=== PATIENT | male | born 1955 | race African-American/Black ===

== ENCOUNTER → 2019-12-24 | Outpatient (CLI) | payer BC, OTHER ==
[~2019-12-24] VITALS: Ht 175.3 cm; Wt 106.6 kg
[2019-12-24 11:57] LABS: Basophils # (auto) 0 10 ^3/uL (0-0.2); Basophils % (auto) 0.4 % (0.0-2.0); Eosinophils # (auto) 0.1 10 ^3/uL (0-0.8); Hemoglobin 15.3 g/dL (13.5-17.5); Lymphocytes # (auto) 1.6 10 ^3/uL (0.4-5.4); Lymphocytes % (auto) 28.3 % (10.0-50.0); Mean Corpuscular Hemoglobin 28.5 pg (28.0-32.0); Mean Corpuscular Hgb Conc. 32.6 g/dL (32.0-36.0); Mean Corpuscular Volume 87.2 fL (80.0-100.0); Monocytes # (auto) 0.5 10 ^3/uL (0-1.3); Neutrophils # (auto) 3.6 10 ^3/uL (1.6-8.6); Neutrophils % (auto) 62.3 % (37.0-80.0); Nucleated Red Blood Cells % 0.1 %; Platelet Count (auto) 181 10^3/uL (140-450); Red Blood Cells 5.39 10^6/uL (4.5-5.90); White Blood Cell 5.7 10^3/uL (4.4-10.8)
[2019-12-24 12:05] LABS: Urine Blood Negative /uL (Negative); Urine Specific Gravity 1.011 (1.001-1.035)
[2019-12-24 12:06] LABS: Albumin 3.8 g/dL (3.4-5.0); Potassium 3.6 mmol/L (3.5-5.1)
[2019-12-24 12:15] LABS: Free T4 (Free Thyroxine) 0.96 ng/dL (0.89-1.76); Prostate Specific Antigen 1.01 ng/mL (0.0-4.0)
[2019-12-24 12:26] LABS: BUN/Creatinine Ratio 9.7; Bilirubin, Total 0.8 mg/dL (0.2-1.0); Total Protein 7.9 g/dL (6.4-8.2)
== END | disposition home or self-care (01) ==
LOC: Rad HDHVI 08:20
PROVIDERS: ATTEND Internal Medicine Cardiovascular Disease
DX: R07.89 Other chest pain (principal); R00.0 Tachycardia, unspecified; I10 Essential (primary) hypertension; E03.9 Hypothyroidism, unspecified; K90.9 Intestinal malabsorption, unspecified; C61 Malignant neoplasm of prostate; E29.1 Testicular hypofunction; N39.0 Urinary tract infection, site not specified; Z79.899 Other long term (current) drug therapy
CPT/HCPCS: 36415; 78452; 80053; 80061; 81003; 82306; 82607; 83036; 84153; 84403; 84439; 84443; 85025; 93017; 93306; 96374; A9500

== ENCOUNTER 2023-12-04 10:29 | Emergency (ER) | payer BC ==
[~2023-12-04] VITALS: Ht 177.8 cm; Wt 105.6 kg
[2023-12-04 11:07] LABS: Urine Bacteria None Seen /hpf (None Seen)
[2023-12-04 11:19] LABS: Basophils # (auto) 0 10 ^3/uL (0-0.2); Basophils % (auto) 0.4 % (0.0-2.0); Eosinophils # (auto) 0.1 10 ^3/uL (0-0.8); Eosinophils % (auto) 1.2 % (0.0-7.0); Hematocrit 47.8 % (41.0-53.0); Hemoglobin 15.8 g/dL (13.5-17.5); Lymphocytes # (auto) 1.3 10 ^3/uL (0.4-5.4); Lymphocytes % (auto) 23.5 % (10.0-50.0); Mean Corpuscular Hemoglobin 28.5 pg (28.0-32.0); Mean Corpuscular Hgb Conc. 33.1 g/dL (32.0-36.0); Mean Corpuscular Volume 86.2 fL (80.0-100.0); Monocytes # (auto) 0.4 10 ^3/uL (0-1.3); Monocytes % (auto) 6.9 % (0.0-12.0); Neutrophils # (auto) 3.8 10 ^3/uL (1.6-8.6); Nucleated Red Blood Cells % 0.1 %; Red Blood Cells 5.54 10^6/uL (4.5-5.90); Red Cell Distribution Width 14.8 % (11.8-14.3); White Blood Cell 5.6 10^3/uL (4.4-10.8)
[2023-12-04 11:25] LABS: Urine Blood Negative /uL (Negative); Urine Clarity Clear (Clear); Urine Color Light-Yellow (Yellow); Urine Protein, UAD Negative (Negative); Urine Specific Gravity 1.012 (1.001-1.035); Urine Urobilinogen Normal (Negative); Urine WBC <1 /hpf (0 - 3); Urine pH 5.5 (5.0-9.0)
[2023-12-04 11:42] LABS: Alanine Aminotransferase 38 U/L (7-40); Albumin 4.1 g/dL (3.2-4.8); Alkaline Phosphatase 55 U/L (46-116); Anion Gap 9 (5-15); Aspartate Aminotransferase 31 U/L (13-40); BUN/Creatinine Ratio 8.1 (10.0-20.0); Bilirubin, Total 0.8 mg/dL (0.2-1.0); Blood Urea Nitrogen 11 mg/dL (9-23); Calcium 9.1 mg/dL (8.5-10.1); Carbon Dioxide 22 mmol/L (20-30); Chloride 108 mmol/L (98-107); Glucose 210 mg/dL (74-106); Potassium 3.9 mmol/L (3.5-5.1); Sodium 139 mmol/L (136-145); Total Protein 6.7 g/dL (5.7-8.2)
[2023-12-04] MEDS: KETOROLAC TROMETH 60MG/2ML VIAL IM ONE (13:15)
[2023-12-04] MEDS ORDERED: CYCL-839 PO (16:03)
[2023-12-04] MEDS ORDERED: DICL50TA2 PO (16:03)
[2023-12-04 16:45] VITALS: BP 148/70; PULSE 58; RESP 17; TEMP 96.7; O2SAT 99
== END 2023-12-04 16:57 | disposition home or self-care (01) ==
LOC: ER 10:29
DX: R07.89 Other chest pain (principal); M94.0 Chondrocostal junction syndrome [Tietze]; E11.21 Type 2 diabetes mellitus with diabetic nephropathy; I10 Essential (primary) hypertension
CPT/HCPCS: 36415; 71046; 80053; 81001; 85025; 93005; J1885

== ENCOUNTER 2025-03-20 12:45 | Outpatient (CLI) | payer BC, MEDICARE ==
[~2025-03-20 12:45] MED LIST: CYCL-839 PO; DICL50TA2 PO
[2025-03-20 12:55] VITALS: BP 118/74; PULSE 65; RESP 18; O2SAT 95
[2025-03-20 13:09] VITALS: BP 116/73; PULSE 62; RESP 18; O2SAT 95
--- NOTE | 2025-03-20 13:14 | DVH ---
EXAM: XY CHEST TWO VIEWS ROUTINE CLINICAL HISTORY: pain COMPARISON: XY CHEST TWO VIEWS ROUTINE on DOS: 12/04/23 TECHNIQUE: Frontal and lateral view of the chest was obtained FINDINGS: Lines and Tubes: None Lungs: No focal consolidation. Pleura: No effusion. No pneumothorax. Cardiomediastinal contours: Unremarkable Bones: No acute osseous abnormality. IMPRESSION: No acute cardiopulmonary disease.
[2025-03-20] MEDS ORDERED: OLME40TA9 PO (14:17)
--- NOTE | 2025-03-21 11:02 | DVHHP ---
ADMIT DATE: 03/20/2025 HISTORY OF PRESENT ILLNESS: The patient is 70 with history of hypertension. Strong family history of coronary artery disease. Now presents with signs and symptom complex of chest pain with exertion. Stress Cardiolite is positive for ischemia and the patient is to undergo coronary angiography. Risks and benefits were explained to the patient. The patient has history of hypertension. No history of diabetes. No history of previous CVA. No history of myocardial infarction. No history of melena, hematochezia, hematemesis, hemoptysis, or any bleeding diathesis including hematuria. Denies a rheumatologic disorder. He is currently on Benicar HCT for blood pressure and is under excellent control at this time. He denies any history of tobacco or alcohol use. Denies any history of trauma. No fever. No chills. No recent travel outside the country. No any infectious etiology at this time. PHYSICAL EXAMINATION: VITAL SIGNS: Blood pressure is 124/80, pulse is 77, O2 saturation 96% on room air. HEENT: Pupils are reactive. Funduscopic exam shows no AV nicking, no exudates, no papilledema. Sclerae anicteric. Extraocular muscles are intact. Tympanic membranes are negative. Oral mucosa moist. Posterior pharynx without any exudates. NECK: No JVD appreciated. Carotid pulses are 2+ symmetrical. Normal upstroke and contour. No bruits. No cervical adenopathy. No supraclavicular adenopathy. No axillary adenopathy. Thyroid is within normal limits. PULMONARY: Clear to auscultation. Tympanic to percussion. No wheezes. No rhonchi. No egophony. CARDIOVASCULAR: Regular rate without S3 and without S4. PMI is not displaced. Soft 1/6 systolic murmur along the left sternal border. ABDOMEN: Soft and nontender. Normal bowel sounds. Liver approximately 5 cm by percussion. Stool guaiac is negative. No epigastric tenderness. No suprapubic tenderness. No CVA tenderness. NEUROLOGIC: The patient is intact. DTRs are 2+ symmetrical. Cranial nerves 2-12 within normal limits. Sensory and motor modalities are intact. EXTREMITIES: 2+ pulses bilaterally. Thus, the patient with chest pain, abnormal stress test, now to undergo coronary angiography. Further recommendations after the angiography. Kan Coburn MD SA/JENNIFER TID: [id number] RECEIPT: [id number]
== END 2025-03-20 17:00 | disposition home or self-care (01) ==
LOC: Rad HDHVI 12:45
PROVIDERS: ATTEND Internal Medicine Cardiovascular Disease
DX: Z01.818 Encounter for other preprocedural examination (principal); I20.9 Angina pectoris, unspecified; I10 Essential (primary) hypertension
CPT/HCPCS: 71046; 93005; G0463

== ENCOUNTER 2025-03-21 06:44 | Day surgery (SDC) | payer BC, MEDICARE ==
[2025-03-20 14:29] LABS: Hematocrit 49.9 % (41.0-53.0); Hemoglobin 17.0 g/dL (13.5-17.5); Mean Corpuscular Hemoglobin 29.3 pg (28.0-32.0); Mean Corpuscular Volume 85.8 fL (80.0-100.0); Nucleated Red Blood Cells % 0.6 %
[2025-03-20 14:44] LABS: INR 1.06 (0.9-1.15); Partial Thromboplastin Time 27.0 SEC (24.5-34.5); Prothrombin Time 11.2 sec (9.3-11.8)
[2025-03-20 14:47] LABS: Alanine Aminotransferase 36 U/L (7-40); Albumin 4.7 g/dL (3.2-4.8); Alkaline Phosphatase 50 U/L (46-116); Anion Gap 7 (5-15); BUN/Creatinine Ratio 7.7 (10.0-20.0); Blood Urea Nitrogen 13 mg/dL (9-23); Calcium 9.7 mg/dL (8.7-10.4); Carbon Dioxide 30 mmol/L (20-31); Chloride 106 mmol/L (98-107); Glucose 78 mg/dL (74-106); Potassium 3.8 mmol/L (3.5-5.1); Sodium 143 mmol/L (136-145); Total Protein 7.6 g/dL (5.7-8.2)
[2025-03-20 14:52] LABS: Bilirubin, Total 1.6 mg/dL (0.2-1.0)
[~2025-03-21] VITALS: Ht 175.3 cm; Wt 103.4 kg
[2025-03-21] VITALS (12 sets, daily range): BP systolic 74–154; BP diastolic 49–82; PULSE 48–57; RESP 12–18; TEMP 97.1; O2SAT 94–97
[~2025-03-21 06:44] MED LIST changes: -CYCL-839 PO; -DICL50TA2 PO; +OLME40TA9 PO
[2025-03-21] MEDS: IODIXANOL 320MG/ML 100ML BTL IV ONE (09:55)
[2025-03-21] MEDS: fentaNYL CITRATE 100 MCG/2 ML VL ONE (09:58)
[2025-03-21] MEDS: ANGIOMAX 250 MG VIAL IV ONE (09:58)
[2025-03-21] MEDS: LIDOCAINE 2%HCL (LOCAL ANESTH.) INJ 20ML MDV ONE (09:59)
[2025-03-21] MEDS: MIDAZOLAM HCL 2MG/2ML 2ml VIAL (1mg/ml) ONE (09:59)
[2025-03-21] MEDS: SODIUM CHL 0.9% 50 ML ONE (09:59)
[2025-03-21] MEDS: CLOPIDOGREL BISULFATE 75 MG TAB ONE (11:01)
--- NOTE | 2025-03-21 11:03 | DVHDS ---
DATE OF DISCHARGE: 03/21/2025 DISCHARGE DIAGNOSIS: Angina status post angioplasty with stent placement of the circumflex artery/obtuse marginal 3. Clinically stable, now being discharged home. Blood pressure will be maintained with Benicar HCT and the patient will be put on dual antiplatelet therapy, aspirin and Plavix. Loading dose has already been given in the [employer]. The patient is clinically stable and will be discharged home. Follow up with me in 1 week. Stable at the time of discharge. ACTIVITY: As tolerated. DIET: 2 g sodium diet. Kan Coburn MD SA/KEN TID: [id number] RECEIPT: [id number]
--- NOTE | 2025-03-21 11:30 | DVHOP ---
DATE OF SURGERY: 03/21/2025 PROCEDURES PERFORMED: * Selective left and right coronary angiography, ventriculogram, right iliac angiography. Angioplasty with stent placement of the circumflex with a 2.5 x 26 mm Bells Sheldon stent. * FFR of the circumflex artery, read up to be 0.64 as well as thrombectomy, shockwave treatment of the circumflex artery. Conscious sedation was given. DESCRIPTION OF PROCEDURE: The patient was prepped and draped under sterile condition, 1% Xylocaine was used to anesthetize the right groin. We elected to go through the right groin even though the patient initially wanted to have a wrist approach, but because of creatinine of 1.6 and high index of suspicion for complex intervention, it is felt the best option, after reviewing the labs, that groin approach would have been the safest, would result in less contrast use, and would give best support for angioplasty of the circumflex artery since the ischemia is in the lateral territory. Using a 6-Belizean JL4 catheter and a 6-Belizean JR4 catheter, selective left and right coronary angiography was performed. Using 6-Belizean pigtail catheter, ventriculogram was done. The 6-Belizean diagnostic system was exchanged for a 6-Belizean interventional system. Using a 6-Belizean XB 3.5 guide catheter, left main was cannulated. Using a ChoICE PT extra support wire, the circumflex lesion was then crossed. FFR was performed again to reassess the severity of the lesion. It turned out to be 0.64. Then, using a 2.5 x 13 mm shockwave thrombectomy catheter, the circumflex artery was then angioplastied and thrombectomized. Following that, a 2.5 x 26 mm Bells Sheldon stent was deployed across the mid circumflex at 12 atmospheres. There were no complications. The patient tolerated the procedure well. RESULTS: * Left main patent. * Left anterior descending artery without any flow restrictive lesion. * Obtuse marginal 1, obtuse marginal 2 without any flow restrictive lesion; however, circumflex in the AV groove/obtuse marginal 3 large caliber vessel had a 90% mid lesion confirmed by FFR. * The patient underwent successful angioplasty with shockwave treatment and thrombectomy with stent placement with a 2.5 x 26 mm Zack Sheldon stent with less than 10% residual stenosis. * Right coronary artery, mild intimal irregularity without any flow restrictive lesion. * Left ventricular function was preserved with an estimated EF of around 55% with LVEDP of 10 mmHg with no gradient across the aortic valve. Thus, the patient underwent successful revascularization of the circumflex artery/obtuse marginal 3 with thrombectomy and stent placement with the FFR intervention. Kan Coburn MD SA/SANTOS/SALINA TID: [id number] RECEIPT: [id number]
[2025-03-21] MEDS: DOPamine 1600MCG/ML D5W 250 ML IV SCH (12:00)
[2025-03-21] MEDS: HYDROcodone-ACET 10/325MG TAB ONE (12:01)
[2025-03-21] MEDS: ONDANSETRON HCL 4 MG/2 ML VIAL IV ONE (12:20)
[2025-03-21] MEDS: SODIUM CHLORIDE 0.9% 500 ML IV ONE (12:21)
[2025-03-21] MEDS: HYDROcodone-ACET 10/325MG TAB PO ONE (12:21)
--- NOTE | 2025-03-22 08:11 | ECG ---
[facility] Test Date: 2025-03-21 Test Time: 11:39:35 Pat Name: MAURICE DYE Department: Room: Gender: M [employer] Manager: DANETTE : 1955 Requested By: PETRA JURADO Order Number: [id number] Reading MD: Bandar Downs Measurements Intervals [place] Rate: 49 P: 69 DE: 164 QRS: -18 QRSD: 80 T: 2 QT: 450 QTc: 406 Interpretive Statements Marked sinus bradycardia Nonspecific T wave abnormality Electronically Signed On 03-25-2025 18:39:15 PDT by Bandar Downs Please click the below link to view image of tracing.
== END 2025-03-21 14:10 | disposition home or self-care (01) ==
LOC: CATH 06:44
PROVIDERS: ATTEND Internal Medicine Cardiovascular Disease
DX: I25.10 Atherosclerotic heart disease of native coronary artery without angina pectoris (principal); R00.1 Bradycardia, unspecified; R07.89 Other chest pain; R06.02 Shortness of breath; Z79.899 Other long term (current) drug therapy; Z79.02 Long term (current) use of antithrombotics/antiplatelets
CPT/HCPCS: 0523T; 36415; 80053; 85025; 85610; 85730; 92973; 93005; 93458; C1725; C1760; C1769; C1874; C1887; C1894; C9600; J0583; J1644; J2250; J2405; J3010; Q9967; 99152; 99153

== ENCOUNTER 2025-05-06 12:55 | Outpatient (CLI) | payer BC, MEDICARE | END 2025-05-06 17:00 | disposition home or self-care (01) | LOC: Rad HDHVI 12:55 | PROVIDERS: ATTEND Internal Medicine Cardiovascular Disease | DX: I08.1 Rheumatic disorders of both mitral and tricuspid valves (principal); I11.0 Hypertensive heart disease with heart failure; I50.33 Acute on chronic diastolic (congestive) heart failure | CPT/HCPCS: 93306 ==